=== PATIENT | female | born 1985 | race Caucasian/White ===

== ENCOUNTER 2021-04-16 00:01 | Inpatient (IN) | payer OTHER ==
--- NOTE | 2021-04-17 14:38 | PR ---
[facility] [address] [place], [place] [address] Signed Progress Notes IP Datetime Report Generated by CPN: 04/17/2021 14:38 PROGRESS NOTES: [id number] Impression: Normal Progression of Labor; Reassuring Heart Rate Procedures: Artificial ROM Plan: Continue Present Management VITAL SIGNS: [id number] EXAM: [id number] Dilatation: 3.0 Effacement: 90 Station: -2 Contractions: q1-2 min MEMBRANES: [id number] Comments: Pt seen and examined. Doing well. Comfortable w/ epidural. Discussed AROM and pt agrees. AROM performed without difficulty for moderate amount of clear fluid. Mother and baby tolerated well. Continue expectant management. Reviewed anticipated course of labor/delivery FETUS A: [id number] FHR Baseline: 135 Variability: Moderate 6-25bpm Accelerations: 15X15 Decelerations: None FHR Category: Category I Presentation: Vertex FETUS B: [id number] Signing Physician: Sydney Chandra DO Copies: ~ *Electronically Signed* 04/17/21 1431 SYDNEY CHANDRA DO PATIENT NAME: JOSEJANNET PROGRESS NOTE DATE OF : 89 PHYSICIAN: SYDNEY CHANDRA DO RPT #: [id number] REPORT IS CONFIDENTIAL AND NOT TO BE RELEASED WITHOUT AUTHORIZATION
--- NOTE | 2021-04-17 18:19 | PR ---
[facility] [address] [facility] [place], [place] [address] Signed Progress Notes IP Datetime Report Generated by CPN: 04/17/2021 18:19 PROGRESS NOTES: [id number] Impression: Normal Progression of Labor; Reassuring Heart Rate Procedures: Intrauterine Pressure Catheter; Sterile Vag Exam Plan: Continue Present Management; Anticipate Vaginal Delivery VITAL SIGNS: [id number] EXAM: [id number] Dilatation: 7.0 Effacement: 90 Station: -1 Contractions: q1-2 min MEMBRANES: [id number] Comments: Pt seen and examined. Breakthru discomfort much improved w/ epidural bolus. On exam pt 7cm. IUPC placed to help monitor contractions as pt very comfortable and not feeling contractions now. Discussed anticipated course of labor and delivery. All questions answered. FETUS A: [id number] FHR Baseline: 135 Variability: Moderate 6-25bpm Accelerations: 15X15 Decelerations: None FHR Category: Category I Presentation: Vertex FETUS B: [id number] Signing Physician: Sydney Chandra DO Copies: ~ *Electronically Signed* 04/17/21 1819 SYDNEY CHANDRA DO PATIENT NAME: JANNET GARCIA PROGRESS NOTE DATE OF : 89 PHYSICIAN: SYDNEY CHANDRA DO RPT #: [id number] REPORT IS CONFIDENTIAL AND NOT TO BE RELEASED WITHOUT AUTHORIZATION
--- NOTE | 2021-04-17 20:56 | PR ---
[facility] [address] [place], [place] [address] Signed Progress Notes IP Datetime Report Generated by CPN: 04/17/2021 20:56 PROGRESS NOTES: [id number] Impression: Normal Progression of Labor Procedures: Intrauterine Pressure Catheter; Sterile Vag Exam Plan: Continue Present Management Informed Consent Obtain: Vaginal Delivery VITAL SIGNS: [id number] EXAM: [id number] Dilatation: 9.0 Effacement: 95 Station: -1 Contractions: q1-2 min MEMBRANES: [id number] Comments: Physician has been at pt's bedside pushing w/ contractions. Pt pushing well w/ contractions. ROP posiition w/ asynclitism noted. Pushing in high Fowlers and on right hip to encourage rotation and correction of asynclitism. Will monitor progress of second stage of labor and status closely. FETUS A: [id number] FHR Baseline: 135 Variability: Moderate 6-25bpm Accelerations: 15X15 Decelerations: None FHR Category: Category I Presentation: Vertex FETUS B: [id number] Signing Physician: Sydney Chandra DO Copies: ~ *Electronically Signed* 04/17/212055 SYDNEY CHANDRA DO PATIENT NAME: JANNET GARCIA PROGRESS NOTE DATE OF : 89 PHYSICIAN: SYDNEY CHANDRA DO RPT #: [id number] REPORT IS CONFIDENTIAL AND NOT TO BE RELEASED WITHOUT AUTHORIZATION
--- NOTE | 2021-04-17 21:50 | PR ---
[facility] [address] [place], [place] [address] Signed Progress Notes IP Datetime Report Generated by CPN: 04/17/2021 21:50 PROGRESS NOTES: [id number] Impression: Arrest of Dilatation/Descent; Non-reassuring Heart Rate Procedures: Intrauterine Pressure Catheter; Sterile Vag Exam Plan: Deliver- Section Informed Consent Obtain: Section Delivery; Risks, Benefits and Alternatives Discussed VITAL SIGNS: [id number] EXAM: [id number] Dilatation: 9.0 Effacement: 95 Station: -1 Contractions: q1-2 min MEMBRANES: [id number] Comments: Pushing w/ pt. No descent noted and significant caput noted. Recurrent late decelerations w/ moderate variability and accelerations noted. Excellent pushing effort, and reviewed adequate pelvis and anticipated weight. Recommend primary low transverse delivery. Risks benefits and alternatives discussed in detail, and all questions answered. [place] crew and assist called and en route. Pt given terb. Will give Ancef 2 g IV and Azithromicin 500mg IV now. Will continue to monitor status closely. FETUS A: [id number] FHR Baseline: 135 Variability: Moderate 6-25bpm Accelerations: 15X15 Decelerations: None FHR Category: Category I Presentation: Vertex FETUS B: [id number] Signing Physician: Sydney Chandra DO Copies: ~ *Electronically Signed* 04/17/21 6665 SYDNEY CHANDRA DO PATIENT NAME: JANNET GARCIA PROGRESS NOTE DATE OF : 89 PHYSICIAN: SYDNEY CHANDRA DO RPT #: [id number] REPORT IS CONFIDENTIAL AND NOT TO BE RELEASED WITHOUT AUTHORIZATION
--- NOTE | 2021-04-17 23:36 | NUR ---
04/17/21 2336 JOANNE BISWAS 1127 PATIENT INTO ROOM FBC 105. PATIENT AWAKE AND ALERT, PROVIDED WARM BLANKETS APPEARS TO BE SHIVERING. DRESSING TO PELVIC C/D/I. BURKS IN PLACE, REDDISH TINGED URINE IN BAG. FUNDAS MIDLINE AND FIRM AT UNBILICUS.
--- NOTE | 2021-04-18 14:10 | PR ---
[facility] [address] [facility] [place], [place] [address] Signed PP Progress Notes Datetime Report Generated by CPN: 04/18/2021 14:10 SUBJECTIVE: [id number] Pain: Within Normal Limits Nausea/Vomiting: Denies Flatus: Yes Vital Signs: [id number] Vital Signs: Reviewed; Within Normal Limits EXAM: Ongoing Cardiovascular: Normal Respiratory: Normal Abdomen/Uterus: Normal Lochia: Normal Vulva/Perineum: Normal CVA Tenderness: Normal Extremities: Abnormal Incision: Normal Progress: Not Applicable Exam Comments: Fundus firm U-2 nontender. Incision healing well. PUPPP rash slowing improving IMPRESSION/PLAN/PROCEDURES: [id number] Impression: Normal Progression Plan: Discharge Progress Notes: Pt seen and examined. Doing well. Ambulating, voiding, and tolerating full diet. Pain and lochia minimal. Pumping and expressing colustrum. was transferred to [facility] NICU and pt desires d/c to be with him. Reviewed d/c instructions in detail. Planning Nexplanon . Signing Physician: Sydney Chandra DO Copies: ~ *Electronically Signed* 04/18/21 0380 SYDNEY CHANDRA DO PATIENT NAME: JANNET GARCIA PROGRESS NOTE DATE OF : 89 PHYSICIAN: SYDNEY CHANDRA DO RPT #: [id number] REPORT IS CONFIDENTIAL AND NOT TO BE RELEASED WITHOUT AUTHORIZATION
--- NOTE | 2021-04-25 15:33 | PATH ---
[facility] [address] [place], [place] [address] Signed SPECIMEN(S): A PLACENTA SPECIMEN SOURCE: A. PLACENTA CLINICAL HISTORY: OB history: G1. Maternal: COVID positive at 14 weeks gestation. Postop diagnosis: for failure to descend, non-reassuring heart tones. FINAL PATHOLOGIC DIAGNOSIS: Placenta, section: - Calvo placenta, 597 grams. - Umbilical cord: Three-vessel umbilical cord with no histopathologic abnormality. - membranes: Pigmented macrophages. - Placental disc: Chorionic villi with mature villous morphology, focal basal plate myometrial fibers, see comment. COMMENT: Focal myometrial fibers are seen within the basal plate, confirmed by smooth muscle actin immunohistochemical stain (with appropriately staining controls). No evidence of placenta accreta is identified. NAL:cml:C2NR MICROSCOPIC EXAMINATION: Histologic sections of all submitted blocks are examined by light microscopy. These findings, together with the gross examination, support the pathologic diagnosis. GROSS DESCRIPTION: The specimen, labeled "MD, placenta," is received fresh and placed in formalin and consists of a calvo discoid placenta with the following parameters: Umbilical cord: Insertion eccentric - 5.4 cm from the margin, measurement 22.7 x 1.5 cm; trivascular. Cord coiling index (per 10 cm): One. Lesions: Slightly edematous. Membranes: Insertion site: Marginal, pacheco, translucent with a slight green hue, rupture site eccentric. Intact. Other: Not grossly identified. Chorionic Plate: Normal radiating vascular pattern, blue, purple, and shiny with a slight green hue. Lesions: Not grossly identified. Other: Not grossly identified. PATIENT NAME: JANNET GARCIA PATHOLOGY DATE OF : 89 REPORT #: [id number] PHYSICIAN: FERMÍN LEE PCP: GIL POLLOCK PAC REPORT IS CONFIDENTIAL AND NOT TO BE RELEASED WITHOUT AUTHORIZATION [facility] [address] [place], [place] [address] Signed Maternal Surface: Normal cotyledons, intact. Lesions: Multiple, focal areas of pacheco-white consolidation from less than 0.1 to 0.5 cm in greatest dimension. Measurement: 23.2 x 18.7 x 2.3 cm. Weight (trimmed): 597 g Cut Surface: Maroon and spongy. Lesions: Not grossly identified. Basal plate fibrin 0.1 cm in thickness. Other Findings: Not grossly identified. Cassette Summary: (A1) membranes and umbilical cord (A2) central section of placenta (A3) eccentric section of placenta including maternal surface consolidation (A4) eccentric section of placenta. AI (under the direct supervision of a pathologist) The Gross Description was prepared using a voice recognition system. The report was reviewed for accuracy; however, sound-alike word errors, addition and/or deletions may occur. If there is any question about this report, please contact Client Services. ADDITIONAL NOTES: Immunohistochemical and/or in situ hybridization studies were performed on this case with the appropriate positive controls that react as expected. This test was developed and its performance characteristics determined by [facility]. It has not been cleared or approved by the U.S. Food and Drug Administration. The FDA has determined that such clearance or approval is not necessary. This test is used for clinical purposes. It should not be regarded as investigational or for research. [facility] is certified under the Clinical Laboratory Improvement Amendments of 1988 (CLIA) as qualified to perform high complexity clinical laboratory testing. This assay has not been validated for specimens that have been decalcified. PERFORMING LABORATORY: The technical component was performed by [facility], [address] [place] [id number] (Galley Boy: Lu King MD; CLIA# [id number]). Professional interpretation was performed by [facility], [address] [place], [place] [address] (CLIA# [id number]). Diagnostician: Marlyn Murphy MD Pathologist Electronically Signed 04/25/2021 PATIENT NAME: JANNET GARCIA [facility] DATE OF : 89 REPORT #: [id number] PHYSICIAN: FERMÍN LEE PCP: GIL POLLOCK PAC REPORT IS CONFIDENTIAL AND NOT TO BE RELEASED WITHOUT AUTHORIZATION [facility] [address] [facility] [place], [place] [address] Signed Copies: ~ PATIENT NAME: JANNET GARCIA PATHOLOGY DATE OF : 89 REPORT #: [id number] PHYSICIAN: FERMÍN LEE PCP: GIL POLLOCK PAC REPORT IS CONFIDENTIAL AND NOT TO BE RELEASED WITHOUT AUTHORIZATION
--- NOTE | 2021-05-09 23:04 | OR ---
[facility] [address] [facility] [place], [place] [address] Signed DATE OF OPERATION: 04/17/2021 SURGEON: Sydney Chandra DO PREOPERATIVE DIAGNOSES: 1. IUP at 40 weeks and 2 days gestation. 2. Failure to descend. 3. Non-reassuring heart tracing. 4. Persistent OP position. 5. PUPPP. 6. Rh negative. POSTOPERATIVE DIAGNOSES: 1. IUP at 40 weeks and 2 days gestation. 2. Failure to descend. 3. Non-reassuring heart tracing. 4. Persistent OP position. 5. PUPPP. 6. Rh negative. PROCEDURES PERFORMED: Primary low transverse delivery. ANESTHESIA: Epidural. OFFICE CLIN ASST: Orly Daniel DO ESTIMATED BLOOD LOSS: 600 mL. COMPLICATIONS: None. FINDINGS: Viable male , 8 pounds 7 ounces with Apgars of 4, 6 and 8. Meconium stained fluid. vertex was direct OP and deflexed. Blood gases venous, pH 7.39, pCO2 of 31, bicarb of 18.2, base excess -5.2. Normal uterus, tubes, and ovaries. Electronically Signed By: SYDNEY CHANDAR DO 05/09/21 2304 PATIENT NAME: JANNET STERLING OPERATIVE REPORT DATE OF : 89 REPORT #: [id number] PHYSICIAN: SYDNEY CHANDRA DO PCP: GIL POLLOCK PAC REPORT IS CONFIDENTIAL AND NOT TO BE RELEASED WITHOUT AUTHORIZATION [facility] [address] [place], [place] [address] Signed INDICATION: Ms. Sterling is a very pleasant 36-year-old G1, P0 white female, who presented to Labor and Delivery for elective induction of labor. The patient was ripened with Cytotec and AROM was performed. Labor then progressed to complete and the patient pushed with contractions. She previously had received an epidural. Minimal descent was noted and OP position was suspected. Fetus then developed recurrent late decelerations. Decision was made to recommend primary low-transverse delivery. Risks, benefits, and alternatives were discussed in detail with the patient. The patient understands and wished to proceed with the procedure. TECHNIQUE: The patient was taken to the operating room where a time-out was performed to confirm correct patient and correct procedure. Epidural anesthesia was bolused and found to be adequate. The patient was then prepped and draped in the supine position with a bump on the right hip. The patient received Ancef 2 g as well as azithromycin 500 mg preoperatively. No heparin was indicated. Once epidural was found to be adequate, a Pfannenstiel skin incision was made using a surgical scalpel, carried down to the fascia. The fascia was nicked in the midline and fascial incision was extended bilaterally using curved Retana scissors. Fascia was grasped with Emma's, elevated, and the underlying rectus muscle dissected off bluntly and sharply. Rectus was then divided in the midline. The peritoneum was grasped with hemostats, elevated and entered sharply. Peritoneal incision was extended bilaterally using blunt dissection. Jayjay self retractor was then placed and lower uterine segment identified. Hysterotomy was then performed using a surgical scalpel and hysterotomy was extended bilaterally using blunt dissection. Thick meconium was noted and direct OP position was also noted. vertex was noted to be deflexed. The surgeon's hand was placed into the uterine cavity, but the head was unable to be gently flexed and delivered. Dr. Daniel assisting, then attempted to flex the vertex, but again this attempt was unsuccessful. I attempted once again to flex the vertex and at this time it was able to be gently flexed and delivered through the hysterotomy into the maternal abdomen. The remainder of the delivered easily with fundal pressure. No nuchal cord was noted. The cord was doubly clamped and cut and the handed immediately to the waiting pediatric team for further care. Cord gases were obtained and cord blood was obtained for routine analysis. Placenta was manually expressed intact with a centrally inserted three-vessel cord and sent to pathology for history of COVID-19 . Bleeding was scant with Pitocin and the uterine cavity was cleared of any remaining products of conception or clot. Hysterotomy was then repaired using 0 Monocryl in a running nonlocked manner. A 2nd imbricating suture of 0 Monocryl was applied with excellent imbrication and hemostasis. The pelvis was irrigated and found to be hemostatic. The Jayjay self retractor was removed and lower uterine segment again identified. Small amount of oozing was noted in the midline. This was made hemostatic with [id number] of 0 Monocryl. No additional bleeding was noted and ACell sheet Electronically Signed By: SYDNEY CHANDRA DO 05/09/21 2983 PATIENT NAME: JANNET STERLING OPERATIVE REPORT DATE OF : 89 REPORT #: [id number] PHYSICIAN: SYDNEY CHANDRA DO PCP: GIL POLLOCK PAC REPORT IS CONFIDENTIAL AND NOT TO BE RELEASED WITHOUT AUTHORIZATION [address] [address] Signed was applied to the lower uterine segment. The peritoneum was then reapproximated using 2-0 Vicryl in a running nonlocked manner. Rectus was examined and made hemostatic with judicious use of Bovie electrocautery. It was then plicated in the midline using 0 Vicryl sutures, loosely approximated. ACell powder was applied to the rectus sheath. Fascia was reapproximated using 0 Vicryl in a running nonlocked manner. Subcu was reapproximated using 2-0 Vicryl in a running nonlocked manner with excellent hemostasis appreciated. Skin was reapproximated using surgical liam. The uterus was Crede'd for scant amount of blood and the patient was taken to PACU in good and stable condition. Sponge, needle and instrument count was correct x2 at the end of the procedure. Dr. Daniel was present and participated in all portions of the procedure. Sydney Chandra DO JDW/MODL /[id number] Copies: ~ Electronically Signed By: SYDNEY CHANDRA DO 05/09/21 2304 PATIENT NAME: JANNET STERLING OPERATIVE REPORT DATE OF : 89 REPORT #: [id number] PHYSICIAN: SYDNEY CHANDRA DO PCP: GIL POLLOCK PAC REPORT IS CONFIDENTIAL AND NOT TO BE RELEASED WITHOUT AUTHORIZATION
== END 2021-04-18 16:10 | disposition home or self-care (01) | DRG 788 ==
LOC: FBC 00:01
PROVIDERS: ADMIT Obstetrics & Gynecology; ATTEND Obstetrics & Gynecology
PROC: 10907ZC Drainage of Amniotic Fluid, Therapeutic from Products of Conception, Via Natural or Artificial Opening (ICD-10-PCS; 2021-04-17)
PROC: 3E0P7VZ Introduction of Hormone into Female Reproductive, Via Natural or Artificial Opening (ICD-10-PCS; 2021-04-17)
PROC: 10H07YZ Insertion of Other Device into Products of Conception, Via Natural or Artificial Opening (ICD-10-PCS; 2021-04-17)
PROC: 00HU33Z Insertion of Infusion Device into Spinal Canal, Percutaneous Approach (ICD-10-PCS; 2021-04-17)
PROC: 3E0R3BZ Introduction of Anesthetic Agent into Spinal Canal, Percutaneous Approach (ICD-10-PCS; 2021-04-17)
PROC: 10D00Z1 Extraction of Products of Conception, Low, Open Approach (ICD-10-PCS; principal; 2021-04-17 22:35)
DX: O26.86 Pruritic urticarial papules and plaques of pregnancy (PUPPP) (principal); Z3A.40 40 weeks gestation of pregnancy; Z37.0 Single live birth; O76 Abnormality in fetal heart rate and rhythm complicating labor and delivery; O64.0XX0 Obstructed labor due to incomplete rotation of fetal head, not applicable or unspecified; O77.0 Labor and delivery complicated by meconium in amniotic fluid; Z86.16 Personal history of COVID-19; Z86.19 Personal history of other infectious and parasitic diseases; Z22.7 Latent tuberculosis; Z79.82 Long term (current) use of aspirin; Z79.899 Other long term (current) drug therapy
CPT/HCPCS: 01961; 82803; 85027; A9270; J0456; J1650; J1885; J2001; J2274; J2370; J2405; J2550; J2590; J2795; U0003